=== PATIENT | female | born 1970 | race Caucasian/White ===

== ENCOUNTER 2016-09-20 15:21 | Emergency (ER) | payer MEDICAID ==
[~2016-09-20] VITALS: Ht 165.1 cm; Wt 82.3 kg
[2016-09-20 19:18] VITALS: BP 137/87
== END 2016-09-20 19:18 | disposition home or self-care (01) ==
LOC: ED 15:21
DX: L02.511 Cutaneous abscess of right hand (principal); E11.9 Type 2 diabetes mellitus without complications; Z79.84 Long term (current) use of oral hypoglycemic drugs

== ENCOUNTER 2016-11-19 23:25 | Emergency (ER) | payer SELFPAY ==
[2016-11-20 01:10] VITALS: BP 137/86
== END 2016-11-20 01:10 | disposition home or self-care (01) ==
LOC: ED 23:25
DX: K59.00 Constipation, unspecified (principal); E11.9 Type 2 diabetes mellitus without complications; Z79.84 Long term (current) use of oral hypoglycemic drugs